=== PATIENT | female | born 1955 | race Caucasian/White ===

== ENCOUNTER → 2017-09-03 | Outpatient (CLI) | payer OTHER ==
[~2017-09-03] MED LIST: ASPI81TA23 PO; CALC600T5 PO; HYDR-3516 PO
[2017-09-03 11:49] LABS: PROTHROMBIN TIME - PATIENT 9.8 SEC (9.8-11.6)
[2017-09-03 11:50] LABS: AUTOMATED NEUTROPHIL # 4.1 TH/MM3 (1.8-7.7); BASOPHIL # 0.1 TH/MM3 (0-0.2); BASOPHIL % 0.9 % (0.0-2.0); EOSINOPHIL # 0.1 TH/MM3 (0-0.4); EOSINOPHIL % 1.4 % (0.0-4.0); HEMATOCRIT 40.9 % (35.0-46.0); HEMOGLOBIN 13.8 GM/DL (11.6-15.3); LYMPH % 21.1 % (9.0-44.0); LYMPHOCYTE # 1.3 TH/MM3 (1.0-4.8); MEAN CELL VOLUME 91.7 FL (80.0-100.0); MEAN CORPUSCULAR HGB CONC 33.8 % (32.0-36.0); MEAN PLATELET VOLUME 11.5 FL (7.0-11.0); MONO % 9.6 % (0.0-8.0); MONOCYTE # 0.6 TH/MM3 (0-0.9); PLATELET COUNT 185 TH/MM3 (150-450); RED BLOOD COUNT 4.46 MIL/MM3 (4.00-5.30); RED CELL DISTRIBUTION WIDTH 13.5 % (11.6-17.2); WHITE BLOOD COUNT 6.1 TH/MM3 (4.0-11.0)
[2017-09-03 11:55] LABS: BILIRUBIN, URINE NEG (NEG); BLOOD, URINE NEG (NEG); GLUCOSE,URINE NEG (NEG); KETONE, URINE NEG (NEG); NITRITE,URINE NEG (NEG); SQUAMOUS EPITHELIAL CELL URINE 2 /hpf (0-5); URINE COLOR LIGHT-YELLOW (YELLW/STRAW); URINE LEUKOCYTE ESTERASE NEG (NEG)
[2017-09-03 12:11] LABS: BICARBONATE 28.2 MEQ/L (21.0-32.0); CALCIUM 8.6 MG/DL (8.5-10.1); CREATININE 0.64 MG/DL (0.50-1.00)
--- NOTE | 2017-09-03 12:17 | RADRPT ---
EXAM DATE/TIME: 09/03/2017 12:03 [facility] COMPARISON: No previous studies available for comparison. INDICATIONS : Evaluate for pneumonia, pneumothorax, or communicable disease. Pre-op for hip replacement. MEDICAL HISTORY : None. SURGICAL HISTORY : None. ENCOUNTER: Initial ACUITY: 1 day PAIN SCORE: 0/10 LOCATION: Bilateral chest FINDINGS: PA and lateral views of the chest demonstrate the lungs to be symmetrically aerated without evidence of mass, infiltrate or effusion. The cardiomediastinal contours are unremarkable. Osseous structure s are intact. CONCLUSION: No acute cardiopulmonary process. Jm Deshpande MD on September 03, 2017 at 12:15 Board Certified Radiologist. This report was verified electronically.
--- NOTE | 2017-09-04 23:14 | EKG ---
Date Performed: 09/03/2017 Time Performed: 08:45:21 PTAGE: 62 years EKG: Sinus rhythm NORMAL ECG NO PREVIOUS TRACING DOCTOR: Oliverio Davis Interpretating Date/Time 09/04/2017 23:13:13
== END ==
LOC: CPRE 08:32
PROVIDERS: ATTEND Orthopaedic Surgery
DX: Z01.810 Encounter for preprocedural cardiovascular examination (principal); Z01.811 Encounter for preprocedural respiratory examination; Z01.812 Encounter for preprocedural laboratory examination; Z01.818 Encounter for other preprocedural examination; M16.11 Unilateral primary osteoarthritis, right hip
CPT/HCPCS: 71046; 80048; 81001; 85025; 85610; 93005

== ENCOUNTER 2017-09-14 05:08 | Inpatient (IN) | payer OTHER ==
--- NOTE | 2017-09-06 17:30 | MH ---
cc: Oscar Odell MD DATE OF ADMISSION: 09/14/2017 ADMITTING DIAGNOSES: Severe osteoarthritis of the right hip, pain right hip, gait disturbance, failed percutaneous pin fixation, right femoral neck fracture. HISTORY OF PRESENT ILLNESS: The patient is a 62-year-old white female who had sustained an injury about her right hip within the previous 2 years secondary to a fall, at which time she underwent surgical stabilization with pin fixation as completed by Dr. Christiano Ayers. The patient reports continued pain postoperatively that never improved in spite of a lengthy course of therapy intervention. Apparently no further treatment was recommended and in April this past year, the patient fell once again when she slipped on a wet surface, sustaining trauma to her hip area. Two days later she was seen in the emergency room of [facility], where x-ray studies were negative for any acute bony abnormality. The patient was prescribed Naprosyn for pain, but her symptoms persisted, for which she returned to the emergency room thereafter and subsequently a CT scan was completed, identifying an acetabular fracture. The patient returned to her treating surgeon for further disposition and at that time was told to continue using a walker as an ambulatory aid and prescribed hydrocodone for pain management. She remained symptomatic, reporting a second injury occurring in May, when she again fell at home but was unable to arise independently thereafter. Several days later, she was seen in followup disposition by Dr. Ayers and at that time she reports she was told her symptoms were related to rib fractures. She subsequently presented to the undersigned physician in July of this year for second opinion evaluation. At that time, she described ongoing and persistent pain about her right hip and groin area that influenced all weightbearing activities and was requiring her to use a cane as a second time worker ambulatory aid. She was aware of a recurrent popping sensation about her right groin area for which she had been taking oxycodone in the recent past for pain management. She described considerable difficulty conforming to her daily routine as related to all weightbearing activities. X-ray studies at that time did reveal significant degenerative changes with subtotal obliteration of the joint space. Three Perales pins were identified traversing the femoral neck and head region. Findings and treatment options were reviewed with the patient at that time. The pros and cons of continuing with conservative management versus operative intervention that would involve removal of her Perales pins and conversion to a total hip arthroplasty were outlined. Emphasis was made regarding the fact that the decision to proceed with surgery would be left entirely to the patient's discretion. The patient readily admitted that she was severely incapacitated and desirous of pursuing operative treatment as discussed. In compliance with her wishes, she was scheduled for admission at this time in order that the above be accomplished. PAST MEDICAL HISTORY, HOSPITALIZATIONS AND SURGERIES: In addition the operation described have included tonsillectomy and vaginal hysterectomy. The patient denies active medical illnesses. CURRENT MEDICATIONS: Include hydrocodone 5/325, MRM Vegan bone supplement 2 capsules twice daily, and an 81 mg aspirin tablet daily. ALLERGIES: THE PATIENT DENIES ANY KNOWN DRUG ALLERGIES. REVIEW OF SYSTEMS: She wears glasses for reading purposes. Denies headache, seizure, or syncope. No sinus congestion or epistaxis. Diminished auditory acuity. No tinnitus. No bleeding gums or dysphagia. Denies cough, shortness of breath, upper respiratory infection, pneumonia, or tuberculosis. No angina or heart disease. Her appetite is good. Bowel movements are regular. No hepatitis, gallbladder disease, ulcers, or hemorrhoids. No urinary tract infection. No kidney stones. A history of a left ankle fracture treated by cast immobilization. No psychiatric illness. Her remaining review of systems is unremarkable and noncontributory. FAMILY HISTORY: 45 years. is 65 years of age, in good health. One daughter described as being in good health. Family history is otherwise positive for heart disease. SOCIAL HISTORY: The patient is a housewife. She attended college, but did not receive a degree. Denies active use of tobacco. Ethanol consumption occasionally on a social basis. PHYSICAL EXAMINATION: Height 5 feet 4 inches, weight 138 pounds. An alert, oriented, and responsive 62-year-old white female, sitting quietly upon the examination table with mild distress as related to her right hip. HEENT: Pupils are equally round and reactive to light. Extraocular movements full. Sclerae are clear. External nares clear. External auditory canals clear. Dental intact. Mucous membranes pink and moist. Pharynx clear. NECK: Supple. Active range of motion. No appreciable pain. Carotid pulse palpable bilaterally. Trachea midline. Thyroid without enlargement. LUNGS: Clear to auscultation and percussion. No CVA tenderness. No discomfort throughout the dorsal lumbar spine. HEART: Regular rhythm. No murmur or gallop. ABDOMEN: Soft, nontender. Bowel sounds present. PELVIC: Per primary care physician. EXTREMITIES: Right hip, there is mild tenderness elicited along the lateral aspect of the hip without palpable deformity. Limited and guarded mobility at the hip joint in all ranges assessed with pain at the extreme of motion and a subtle suggestion for crepitation. Straight leg raising is negative at 80 degrees. Cuong sign is positive. Distal sensory grossly intact. Pronounced antalgic gait with cane support. NEUROLOGIC: Cranial nerves 2-12 grossly intact excluding diminished sensation along the lateral aspect of the face adjacent to the lips on the right side secondary to trauma sustained from a dog bite. IMPRESSION: Severe osteoarthritis of the right hip, pain right hip, gait disturbance, failed percutaneous pin fixation, right femoral neck fracture. PLAN: Removal of Perales pins and conversion to right total hip arthroplasty. The nature of the planned surgical procedure, the potential complications and risks associated, the expectations of surgery, and the consent form were thoroughly reviewed with the patient prior to her admission to the hospital. Lyndsay has indicated her full understanding regarding all of the above and given consent to proceed with treatment as outlined. Medical evaluation and clearance for surgery will be completed by her primary care physician, Dr. Chikis Carrillo. MD SADAF Coleman/TI , 05:06 PM , 05:29 PM
[~2017-09-14] VITALS: Ht 162.6 cm; Wt 61.6 kg
[2017-09-14] MEDS ORDERED: LACTATED RINGER'S 1000 ML IV PRN (05:30)
[2017-09-14] MEDS ORDERED: METOPROLOL TARTRATE 25 MG TAB PO PRN (05:30)
[2017-09-14] MEDS ORDERED: SODIUM CHLORID 0.9% 500 ML IV PRN (05:30)
[2017-09-14] MEDS ORDERED: CHLORHEXIDINE GLUCONATE 2 % 1 PACK (2 CLOTHS) TOPICAL PRN (05:30)
[2017-09-14] MEDS ORDERED: TRANEXAMIC ACID 1 GM PRIOR TO PROCEDURE IV SCH ×2 (05:30)
[2017-09-14] MEDS ORDERED: ceFAZolin 2 GM PREMIX 50 ML IV SCH (05:30)
[2017-09-14] MEDS ORDERED: TRANEXAMIC ACID 1 GM POST-OP IV SCH ×2 (05:30)
[2017-09-14] MEDS ORDERED: POVIDONE IODINE 5% (ANTISEPSIS KIT) 4 APPLICATIONS EACH NARE PRN (05:30)
[2017-09-14] MEDS ORDERED: POVIDONE IODINE 7.5% SCRUB 118 ML BOTTLE TOPICAL SCH (05:30)
[2017-09-14] MEDS ORDERED: ceFAZolin INJ 1,000 MG VIAL ONE (06:07)
[2017-09-14] MEDS ORDERED: DO NOT ADM ANY ANTICOAGULANT DRUGS PRN (09:20)
[2017-09-14] MEDS ORDERED: MORPHINE SULFATE 4 MG/ML INJ ONE (09:28)
[2017-09-14] MEDS ORDERED: MIDAZOLAM HCL 2 MG/2 ML VIAL ONE (09:29)
[2017-09-14] MEDS ORDERED: ACETAMINOPHEN/HYDROcodone 325 MG/5 MG TAB PO PRN (09:30)
[2017-09-14] MEDS ORDERED: NALOXONE HCL 0.4 MG/ML AMP IV PUSH PRN (09:30)
[2017-09-14] MEDS ORDERED: ACETAMINOPHEN 325 MG TAB PO PRN (09:30)
[2017-09-14] MEDS ORDERED: Post-op Orders (for Pharmacy) XX ONE (09:30)
[2017-09-14] MEDS ORDERED: MISCELLANEOUS PHARMACY INFORMATION XX ONE (09:30)
[2017-09-14] MEDS ORDERED: DOCUSATE SODIUM 100 MG CAP PO PRN (09:30)
[2017-09-14] MEDS ORDERED: ONDANSETRON HCL 4 MG/2 ML VIAL IVP PRN (09:30)
--- NOTE | 2017-09-14 09:33 | HHI.FF ---
Face to Face Verification Diagnosis: (1) Degenerative joint disease of right hip Physical Therapy Gait training Hip: Total hip, Protocol: Right, Abduction pillow while in bed Right LE Weight Bearing: WB as tolerated Right LE Range of Motion: Active ROM Nursing Dressing Changes: Daily dressing change I have seen patient Lyndsay Pastor on 09/14/17. My clinical findings support the need for the requested home health care services because: Limited ability to care for self High risk of falls I certify that my clinical findings support that this patient is homebound because: Post-op weakness Unsteady gait/balance Unsafe to leave home unassisted Oscar Odell MD Sep 14, 2017 09:33
[2017-09-14] MEDS: DEXT 5%-NACL 0.45% 1000 ML INJ 1,000 ML IV SCH ×3 (10:00→20:34)
--- NOTE | 2017-09-14 10:19 | MP ---
cc: Oscar Odell MD DATE OF OPERATION: PREOPERATIVE DIAGNOSIS: Severe osteoarthritis of the right hip, pain right hip, gait disturbance, failed percutaneous pin fixation of right femoral neck fracture. POSTOPERATIVE DIAGNOSIS: Severe osteoarthritis of the right hip, pain right hip, gait disturbance, failed percutaneous pin fixation of right femoral neck fracture. PROCEDURE PERFORMED: Removal of 3 cannulated screws, followed by right total hip arthroplasty. SURGEON: MD Cass ANESTHESIA: General endotracheal. INDICATIONS: A 62-year-old white female who sustained an injury of her right hip within the previous 2 years secondary to a fall, at which time she underwent surgical stabilization by percutaneous pin fixation as completed by Dr. Christiano Ayers. The patient reports continued pain postoperatively that never improved in spite of a lengthy course of therapy intervention. Apparently no further treatment was recommended. In April of this past year the patient fell when she slipped on a wet surface sustaining blunt trauma to her hip area. Two days later, she was seen in the emergency room at [facility] where x-ray studies were negative for any acute bony abnormality. The patient was prescribed Naprosyn for pain, but her symptoms persisted. She returned to the emergency room, and a subsequent CT scan was completed, identifying an acetabular fracture. The patient returned to her treating surgeon for further disposition and at that time was told she was to continue using a walker as an ambulatory aid and prescribed hydrocodone for pain management. She remains symptomatic, reporting a second injury occurring in May when she again fell at home, but was unable to rise independently. Several days later, she was again seen in followup disposition by her treating surgeon and at that time, she reports she was told her symptoms were related to rib fractures. She subsequently presented to the undersigned physician in July of this year for a second opinion evaluation. At that time she described ongoing and persistent pain about her right hip and groin area that influenced all weightbearing activities and was required to use a cane as a full-time ambulatory aid. She was aware of a recurrent popping sensation about her right groin area for which she has been taking oxycodone in the recent past for pain management. She described considerable difficulty conforming to her daily routine as related to all weightbearing activities. Her x-ray studies revealed significant degenerative changes with subtotal obliteration of the joint space. Three fixation pins were identified traversing the femoral neck and head region. Findings and treatment options were reviewed at that time. The pros and cons of continuing with conservative management versus operative intervention that would involve removal of fixation pins and conversion to a total hip arthroplasty were outlined. Emphasis was made regarding the fact that the decision to proceed with surgery would be left entirely to the patient's discretion. The patient readily admitted that she was severely incapacitated and desirous of pursuing operative treatment as discussed. In compliance with her wishes, she was scheduled for admission at this time in order that the above be accomplished. FORMAT: Following the induction of satisfactory general anesthesia by endotracheal intubation as completed per the Department of Anesthesia, the patient was positioned upon the operating table in a left lateral decubitus fashion. The right hip and lower extremity proper were isolated with a U-drape thereafter being prepped with Betadine solution and draped into a sterile field in the routine manner. Prior to initiation of the actual procedure, the standard timeout protocol was completed. All parameters were appropriately addressed and confirmed by operating room personnel. A standard posterolateral approach to the hip was initiated through a sharp skin incision and developed through underlying subcutaneous tissue with hemostasis maintained by electrocautery. By deepening dissection through underlying subcutaneous tissue, the fascia overlying the gluteus musculature was exposed and thereafter sharply incised to the limits of the incision. The incision was extended slightly distally overlying the proximal portion of the iliotibial band that facilitated exposure of the heads of 3 cannulated screws. The screws were thereafter removed without difficulty. Progressive dissection thereafter facilitated exposure of the short external rotator structures. The piriformis tendon was utilized as an anatomical landmark and division of these structures was completed in a superior to inferior orientation and reflected medially exposing the posterior capsule. The sciatic nerve was protected. An L-shaped capsulotomy was accomplished through which a posterior dislocation of the femoral head was completed. Examination revealed severe degenerative changes with an area of complete collapse within the central portion of the femoral head and underlying subchondral bone exposed. The femoral template was positioned for alignment orientation. The neck was scored and thereafter divided with power saw, the amputated segment being passed to the back table as surgical specimen. Attention was initially directed to the proximal femur. Cancellous bone was harvested. The tapered reamer was inserted for alignment orientation. Sequential rasping and broaching was accomplished from 7 through 12 mm with the calcar serjio being utilized at the 12 mm stage. The 12 mm stem was determined to be a favorable fit. The trial component being removed, attention was redirected to the acetabulum. The labrum and reactive soft tissue were sharply excised. Progressive reaming was accomplished from 45 through 51 mm. The 52 trial shell was positioned and determined to be satisfactory. With all trial components being removed, the wound was copiously irrigated with pulsating antibiotic solution, hemostasis maintained by electrocautery. Harvested cancellous bone was digitally impacted into the depths of the acetabulum and thereafter a 52 mm Continuum acetabular shell was firmly seated in approximately 45 degrees inclination to the horizontal and slight anteversion. A single 25 mm, 6.5 cancellous screw was inserted, superiorly to augment fixation. The permanent high wall acetabular liner was affixed to the acetabular shell. Attention was redirected to the proximal femur. The trial femoral broach was repositioned and a trial reduction followed utilizing a 36 mm modular head with both -6 and -3 neck length adapters trialed. The -3 sizing was determined to be the more favorable fit. The hip was flexed to 90 degrees and internally rotated to 45 degrees with stability maintained. An open dislocation was completed, the trial femoral components being removed. The canal was thoroughly irrigated and dried and thereafter a size 12 Echo Bi-Metric standard femoral stem was firmly seated to which, a 36 mm ceramic head with -3 mm neck length adapter attached, an open reduction completed and repeat range of motion again noted stability as previously described. Final irrigation was accomplished with hemostasis maintained. Autovac drain tubes were inserted through superior stab wounds. The fascia of the gluteus musculature was reapproximated with a running 0 Vicryl suture. The remaining portion of the wound was closed in layers in the routine manner, skin margins being reapproximated with a running subcuticular 3-0 Vicryl suture over which Steri-Strips were applied. Xeroform gauze and a bulky dry sterile dressing were placed. The patient was repositioned into a supine orientation where an abduction splint was attached. Anesthesia was discontinued. She was thereafter transferred to the hospital stretcher, and returned to the recovery room in satisfactory condition, having tolerated her operative procedure well. Estimated blood loss was approximately 300 mL as determined per Anesthesia. All femoral implants were of the Biomet analysis director, acetabular components of the Jose analysis director. MD SADAF Coleman/SB , 09:26 AM , 10:17 AM
--- NOTE | 2017-09-14 10:24 | RADRPT ---
EXAM DATE/TIME: 09/14/2017 09:52 [facility] COMPARISON: No previous studies available for comparison. INDICATIONS : Post-op right hip replacement. MEDICAL HISTORY : Gastroesophageal reflux disease. SURGICAL HISTORY : Tonsillectomy. Hysterectomy. ENCOUNTER: Initial ACUITY: 1 day PAIN SCORE: Non-responsive. LOCATION: Right anterior hip. FINDINGS: Patient is status post placement of a right hip prosthesis. There is good position and alignment of t he prosthesis and bony structures. The bony structures are grossly intact. Postsurgical changes are p resent. CONCLUSION: Good position and alignment on this postoperative examination. Adriel Rivers MD on September 14, 2017 at 10:21 Board Certified Radiologist. This report was verified electronically.
[2017-09-14] MEDS ORDERED: TRANEXAMIC ACID INJ 1,000 MG in SODIUM CHLORIDE 0.9% INJ 100 ML IV SCH (11:00)
[2017-09-14] MEDS: MORPHINE SULFATE 30 MG/30 ML PCA IV SCH (11:36)
[2017-09-14] MEDS ORDERED: NEOSTIGMINE 5 MG/5 ML SYRINGE IV PUSH ONE (12:00)
[2017-09-14] MEDS ORDERED: ONDANSETRON HCL 4 MG/2 ML VIAL IV ONE (12:00)
[2017-09-14] MEDS ORDERED: PROPOFOL 200 MG/20 ML AMP IV ONE (12:00)
[2017-09-14] MEDS ORDERED: PHENYLEPH/NS 1000 MCG/10 ML SYR IV ONE (12:00)
[2017-09-14] MEDS ORDERED: LIDOCAINE HCL 1% PF 5 ML SYRINGE OTHER ONE (12:00)
[2017-09-14] MEDS ORDERED: ROCURONIUM INJ 50 MG/5 ML SYRINGE IV PUSH ONE (12:00)
[2017-09-14] MEDS ORDERED: GLYCOPYRROLATE 1 MG/5 ML SYRINGE IV PUSH ONE (12:00)
[2017-09-14] MEDS ORDERED: DEXAMETHASONE SOD PHOS 4 MG/ML VIAL IV ONE (12:00)
[2017-09-14] MEDS ORDERED: ESMOLOL HCL 100 MG/10 ML VIAL IV ONE (12:00)
[2017-09-14 13:55] VITALS: BP 105/69; PULSE 97; RESP 18; TEMP 95.7; O2SAT 99
[2017-09-14] MEDS: PCA - TOTAL MG MORPHINE DELIVERED PER SHIFT SCH ×2 (14:00→22:00)
[2017-09-14] MEDS ORDERED: ZOLPIDEM TARTRATE 5 MG TAB PO PRN (21:00)
[2017-09-14 21:54] VITALS: BP 119/59; PULSE 85; RESP 17; TEMP 97.5; O2SAT 96
[2017-09-15] VITALS (7 sets, daily range): BP systolic 103–142; BP diastolic 54–63; PULSE 85–108; RESP 16–18; TEMP 97.8–99.4; O2SAT 93–97
[2017-09-15] MEDS: PCA - TOTAL MG MORPHINE DELIVERED PER SHIFT SCH ×3 (05:50→22:00)
[2017-09-15] MEDS ORDERED: HYDR-3516 PO (06:21)
[2017-09-15] MEDS ORDERED: ASPI-183 PO (06:21)
[2017-09-15] MEDS ORDERED: WALKER WHEELS/F1 MIS (06:24)
[2017-09-15] MEDS ORDERED: ADJUSTABLE COMM1 MIS (06:24)
[2017-09-15] MEDS: RIVAROXABAN 10 MG TAB PO SCH (08:31)
[2017-09-15] MEDS: DEXT 5%-NACL 0.45% 1000 ML INJ 1,000 ML IV SCH ×2 (09:29→20:00)
[2017-09-15 13:23] LABS: HEMATOCRIT 31.7 % (35.0-46.0); HEMOGLOBIN 10.7 GM/DL (11.6-15.3)
[2017-09-15] MEDS: MORPHINE SULFATE 30 MG/30 ML PCA IV SCH (14:22)
--- NOTE | 2017-09-15 15:05 | PD.CONS ---
HPI Service [facility] Consult Requested By Orthopedic surgery Reason for Consult Medical management Primary Care Physician Non-Staff Diagnoses: History of Present Illness Ms. Pastor is a pleasant 62-year-old female with a history of right hip injury 2 years ago status post pin fixation who underwent removal of cannulated screws, right total hip arthroplasty on 09/14/2017. Patient has essentially no chronic medical condition except for right hip osteoarthritis. Patient is currently doing well. Pain is well controlled. No chest pain, SOB, fever, chills. Review of Systems Except as stated in HPI: all other systems reviewed are Neg Past Family Social History Allergies: Coded Allergies: No Known Allergies (Unverified , 09/14/17) Past Medical History Hip pain Past Surgical History Tonsillectomy, hysterectomy. Reported Medications Current Medications Medications (Trade) Dose Ordered Sig/Stanley Route Start Time Stop Time Status Last Admin Lactated Ringer's 1,000 ml @ 30 mls/hr Q24H PRN IV 09/14/17 05:30 09/17/17 05:29 09/14/17 05:45 Sodium Chloride 500 ml @ 30 mls/hr [id number] PRN IV 09/14/17 05:30 09/17/17 05:29 (Lopressor) 25 mg CONCRETE SAW OPERATOR PRN PO 09/14/17 05:30 09/17/17 05:29 (Betadine 5% Antisepsis Kit) 1 applic CONCRETE SAW OPERATOR PRN EACH NARE 09/14/17 05:30 09/17/17 05:29 09/14/17 05:45 (Chlorhexidine 2% Cloth) 3 pack CONCRETE SAW OPERATOR PRN TOPICAL 09/14/17 05:30 09/17/17 05:29 09/14/17 05:30 (Betadine 7.5% Scrub) 1 applic ONCE TOPICAL 09/14/17 05:30 09/17/17 05:29 09/14/17 05:45 Cefazolin Sodium/ Dextrose 50 ml @ 100 mls/hr CONCRETE SAW OPERATOR IV 09/14/17 05:30 09/17/17 05:29 09/14/17 06:38 Dextrose/Sodium Chloride 1,000 ml @ 125 mls/hr Q8H IV 09/14/17 09:29 09/14/17 20:34 (Xarelto) 10 mg Q24H PO 09/15/17 08:30 09/15/17 08:31 (Grandy 5-325 Mg) 1 tab Q4H PRN PO 09/14/17 09:30 (Grandy 5-325 Mg) 2 tab Q4H PRN PO 09/14/17 09:30 (Tylenol) 650 mg Q6H PRN PO 09/14/17 09:30 (Zofran Inj) 4 mg Q6H PRN IVP 09/14/17 09:30 09/14/17 18:53 (Colace) 100 mg BID PRN PO 09/14/17 09:30 (Ambien) 5 mg HS PRN PO 09/14/17 21:00 (Narcan Inj) 0.4 mg UNSCH PRN IV PUSH 09/14/17 09:30 (Morphine 1 Mg/ ml BRICK BURNER HEAD) 30 mg UNSCH IV 09/14/17 09:30 09/16/17 09:29 09/15/17 14:22 BRICK BURNER HEAD Dosage Infused (Pha) 1 Q8HR .XX 09/14/17 14:00 09/15/17 13:55 Family History No family history of Alzheimer's or Parkinson's. Social History Does not use tobacco or illicit drugs. Drinks alcohol socially. Physical Exam Vital Signs Vital Signs Date Time Temp Pulse Resp B/P (MAP) Pulse Ox O2 Delivery O2 Flow Rate FiO2 09/15/17 14:22 18 09/15/17 13:55 18 09/15/17 08:00 98.7 87 18 103/54 (70) 93 09/15/17 05:50 18 09/15/17 03:15 98.4 93 17 108/54 (72) 96 09/15/17 00:37 97.9 85 18 120/58 (78) 97 09/14/17 22:00 18 09/14/17 21:54 97.5 85 17 119/59 (79) 96 Physical Exam GENERAL: This is a well-nourished, well-developed patient, in no apparent distress. SKIN: No rashes, ecchymoses or lesions. Warm and dry. HEAD: Atraumatic. Normocephalic. No temporal or scalp tenderness. EYES: Pupils equal round and reactive. No injection or drainage. ENT: Nose without bleeding, purulent drainage or septal hematoma. Airway patent. NECK: Trachea midline. No lymphadenopathy. Supple, nontender, no meningeal signs. CARDIOVASCULAR: Regular rate and rhythm without murmurs, gallops, or rubs. No JVD. RESPIRATORY: Clear to auscultation. Breath sounds equal bilaterally. No wheezes , rales, or rhonchi. GASTROINTESTINAL: Abdomen soft, non-tender, nondistended. No guarding. MUSCULOSKELETAL: Extremities without clubbing, cyanosis, or edema. s/p right hip arthroplasty. NEUROLOGICAL: Awake and alert. Cranial nerves II through XII intact. No focal neurological deficits. Normal speech. Laboratory Laboratory Tests Test 09/15/17 11:20 Hemoglobin 10.7 Hematocrit 31.7 Result Diagram: 09/15/17 1120 Imaging Last Impressions Hip X-Ray 09/14/17 0929 Signed Impressions: Service Date/Time: Thursday, September 14, 2017 09:52 - CONCLUSION: Good position and alignment on this postoperative examination. Adriel Rivers MD Assessment and Plan Problem List: (1) Degenerative joint disease of right hip ICD Code: M16.11 - Unilateral primary osteoarthritis, right hip Assessment and Plan Ms. Pastor is a pleasant 62 year old female with a history of right hip surgery who underwent removal of cannulated screws and right total hip arthroplasty on . - Right hip degenerative disease - s/p right total hip arthroplasty. - On Morphine BRICK BURNER HEAD as well as Grandy PRN. - Bowel regimen. - Xarelto for DVT prophylaxis. - Mild tachycardia - likely due to pain. Otherwise patient is hemodynamically stable. Thank you for the consult. We will follow this patient peripherally. Problem Qualifiers (1) Degenerative joint disease of right hip: Qualified Codes: M16.51 - Unilateral post-traumatic osteoarthritis, right hip Vahid Ayers DO Sep 15, 2017 15:05
[2017-09-16] MEDS: DEXT 5%-NACL 0.45% 1000 ML INJ 1,000 ML IV SCH ×2 (01:29→09:00)
[2017-09-16] MEDS: ACETAMINOPHEN/HYDROcodone 325 MG/5 MG TAB PO PRN ×3 (02:41→12:19)
[2017-09-16 04:00] VITALS: BP 112/54; PULSE 93; RESP 18; TEMP 98.8; O2SAT 97
[2017-09-16] MEDS: PCA - TOTAL MG MORPHINE DELIVERED PER SHIFT SCH (05:33)
--- NOTE | 2017-09-16 06:40 | MD ---
cc: Oscar Odell MD, Brittany MD DATE OF DISCHARGE: 09/16/2017 ADMITTING DIAGNOSES: Severe osteoarthritis of the right hip, pain right hip, gait disturbance, failed percutaneous pin fixation, right femoral neck fracture. DISCHARGE DIAGNOSIS: Severe osteoarthritis of the right hip, pain right hip, gait disturbance, failed percutaneous pin fixation, right femoral neck fracture. HISTORY: A 62-year-old white female who had sustained an injury about her right hip within the previous 2 years secondary to a fall, at which time she underwent surgical stabilization by way of pin fixation as completed by Dr. Christiano Ayers. The patient reported continued pain postoperatively that never improved in spite of lengthy therapy intervention. No further treatment was recommended. In April of this past year, the patient fell once again when she slipped on a wet surface sustaining trauma to the hip area. She was thereafter seen in the emergency room at [facility] where x-ray studies were negative for any acute bony abnormality. The patient was prescribed Naprosyn for pain, but her symptoms persisted and she returned to the emergency room with a subsequent CT scan apparently identifying an acetabular fracture. The patient returned to her treating surgeon for further disposition and was at that time apparently told to continue utilizing a walker as an ambulatory aid and prescribed hydrocodone for pain management. She remained symptomatic. reporting a second injury occurring in May when she again fell, but was unable to arise independently. Several days later, she was seen in followup disposition once again by her treating surgeon and at that time, she reports that she was advised her symptoms were related to rib fractures. She subsequently presented to the undersigned physician in July of this year for a second opinion evaluation. At that time, she described ongoing and persistent pain about her right hip and groin area that influenced all weightbearing activities and was requiring use of a cane as a full-time ambulatory aid. She described a recurrent popping sensation about the right groin area for which she had been taking oxycodone for pain management. She described considerable difficulty conforming to her daily routine as related to all weightbearing activities. Her x-ray studies revealed significant degenerative changes with subtotal obliteration of the joint space. Three fixation pins were identified traversing the femoral neck and head region. Findings and treatment options were reviewed with the patient at that time. The pros and cons of continuing with conservative management versus operative intervention that would involve removal of the fixation pins and conversion to a total hip arthroplasty were outlined. Emphasis was made regarding the fact that the decision to proceed with surgery would be left entirely to the patient's discretion. The patient readily admitted that she was severely incapacitated and desirous of pursuing operative treatment as discussed. In compliance with her wishes, she was scheduled for admission at this time in order that the above be accomplished. Her physical examination at the time of admission revealed a well-healed lateral incision about the proximal hip area of the right side. There was tenderness elicited overlying the lateral hip area without palpable deformity, limited and guarded mobility of the hip joint in all ranges assessed with pain at the extremes of motion and a subtle suggestion for crepitation. Straight leg raising negative at 80 degrees. Cuong sign positive. Distal sensory grossly intact. Pronounced antalgic gait with cane support. HOSPITAL COURSE: Prior to admission to the hospital, the patient had undergone medical evaluation and clearance for surgery as completed by her primary care physician, Dr. Cihkis Carrillo. She was taken to the operating room on 09/14/2017 and at that time underwent removal of her fixation pins and conversion to total hip arthroplasty. The patient was noted to have tolerated her operative procedure well. Her postoperative course stable thereafter. Hemoglobin and hematocrit assessment postoperatively was 10.7 and 31.7 respectively. The patient was progressively mobilized under the guidance of physical therapy being permitted weightbearing to tolerance about the right lower extremity. Followup examination of her surgical wound noted to be intact healing favorably with no evidence of infection. Medical followup per the hospitalist service. DVT prophylaxis initiated. [employer] consulted to assist with discharge planning. The patient had indicated her desire to be discharged home and continue her rehabilitation on an outpatient basis. Plans were finalized in this regard and pending medical clearance, she was scheduled for discharge on the second postoperative day. Her condition at that time was stable and prognosis favorable. DISCHARGE MEDICATIONS: Included hydrocodone 5/325, #60; aspirin 325 mg 1 tab twice daily for 4 weeks, #60. Oscar Odell MD NBS/DL , 06:19 AM , 06:40 AM
[2017-09-16 08:00] VITALS: BP 111/55; PULSE 92; RESP 17; TEMP 97.2; O2SAT 98
[2017-09-16] MEDS: RIVAROXABAN 10 MG TAB PO SCH (08:03)
[2017-09-16] MEDS ORDERED: MAGNESIUM HYDROXIDE SUSP 30 ML CUP PO SCH (09:00)
[2017-09-16 12:00] VITALS: BP 111/58; PULSE 98; RESP 17; TEMP 97.8; O2SAT 98
== END 2017-09-16 14:45 | disposition home health service (06) | DRG 470 ==
LOC: HSDI 05:08 → EDUNIT# 07:00 → N06B 13:57
PROVIDERS: ADMIT Orthopaedic Surgery; ATTEND Orthopaedic Surgery
PROC: 0QP604Z Removal of Internal Fixation Device from Right Upper Femur, Open Approach (ICD-10-PCS; 2017-09-14)
PROC: 0SR903A Replacement of Right Hip Joint with Ceramic Synthetic Substitute, Uncemented, Open Approach (ICD-10-PCS; principal; 2017-09-14 06:42)
DX: M16.11 Unilateral primary osteoarthritis, right hip (principal); M16.51 Unilateral post-traumatic osteoarthritis, right hip; R00.0 Tachycardia, unspecified; W19.XXXS Unspecified fall, sequela; Z91.81 History of falling; S72.001S Fracture of unspecified part of neck of right femur, sequela
CPT/HCPCS: 73501; 85014; 85018; 86850; 86900; 86901; 88304; 88305; 88311; 94150; C1776; J0690; J1100; J2250; J2270; J2370; J2405; J2710; J3010; J7120